=== PATIENT | female | born 1930 | race Caucasian/White ===

== ENCOUNTER 2017-03-26 19:54 | Emergency (ER) | payer OTHER ==
--- NOTE | ~2017-03-26 | CR142 ---
[facility] A Service of [facility] & [facility] RADIOLOGY TEXT RESULTS PATIENT: AMY CRUZ LOCATION: CFTX : 31 UNIT #: [id number] AGE: [address]: Lisandro Andersen SEX: F ORDER DR: [id number] [facility] [address] [place], [place] [address] [id number] E MR#: [id number] Acc #: [id number] NAME: AMY CRUZ. : 1930 SEX: F STUDY DATE/TIME: 03/26/2017 21:51 UNIT: [facility] ROOM: STUDY DESCRIPTION: CR Hand Min 3 Views Rt Attending Physician: Lisandro Andersen Ordering Physician: Lisandro Andersen Primary Care Physician: Didier Ash M.D. MEDICAL IMAGING REPORT This report is preliminary unless electronic signature is present EXAM Right hand, 3 views, 03/26/2017 INDICATIONS Right hand pain status post fall. 3-day duration. FINDINGS 3 views of the right hand without comparison. There is a possible fracture at the base of the fifth metacarpal. Please correlate with any point tenderness in this region. Otherwise, there is no acute traumatic findings. No foreign body. IMPRESSION 1. Possible fracture at the base of the fifth metacarpal. Please correlate with point tenderness in this region. 2. Degenerative changes in the right hand. Dictated by... Robles Alaniz M.D. THIS IS AN ELECTRONICALLY VERIFIED REPORT Robles Alaniz M.D. at 03/27/2017 2:26 AM RPRah/jasiel TD: 03/27/2017 02:13 JOB #: [id number] MEDICAL IMAGING REPORT Page 1 of 1 COPY
--- NOTE | ~2017-03-26 | CR133 ---
[facility] A Service of [facility] & [facility] RADIOLOGY TEXT RESULTS PATIENT: AMY CRUZ LOCATION: CFTX : 31 UNIT #: [id number] AGE: [address]: Lisandro Andersen SEX: F ORDER DR: [id number] [facility] [address] [place], [place] [address] [id number] E MR#: [id number] Acc #: [id number] NAME: AMY CRUZ. : 1930 SEX: F STUDY DATE/TIME: 03/26/2017 21:47 UNIT: [facility] ROOM: STUDY DESCRIPTION: CR Forearm 2 View Rt Attending Physician: (Jair) Lisandro Andersen Ordering Physician: Jair Andersen Primary Care Physician: Didier Ash M.D. MEDICAL IMAGING REPORT This report is preliminary unless electronic signature is present EXAM Right forearm. INDICATION Fall 3 days ago. Right forearm pain. FINDINGS 2 views of the right forearm without comparison. There is no acute fracture or dislocation. Alignment is anatomic. IMPRESSION No acute findings. Dictated by... Robles Alaniz M.D. THIS IS AN ELECTRONICALLY VERIFIED REPORT Robles Alaniz M.D. at 03/27/2017 2:26 AM FIDENCIO/howard TD: 03/27/2017 02:15 JOB #: [id number] MEDICAL IMAGING REPORT Page 1 of 1 COPY
--- NOTE | ~2017-03-26 | CR157 ---
[facility] A Service of [facility] & [facility] RADIOLOGY TEXT RESULTS PATIENT: AMY CRUZ LOCATION: CFTX : 31 UNIT #: [id number] AGE: [address]: Lisandro Andersen SEX: F ORDER DR: [id number] [facility] [address] [place], [place] [address] [id number] E MR#: [id number] Acc #: [id number] NAME: AMY CRUZ. : 1930 SEX: F STUDY DATE/TIME: 03/26/2017 21:40 UNIT: [facility] ROOM: STUDY DESCRIPTION: CR Humerus Min 2 View Rt Attending Physician: (Jair) Lisandro Andersen Ordering Physician: Jair Andersen Primary Care Physician: Didier Ash M.D. MEDICAL IMAGING REPORT This report is preliminary unless electronic signature is present EXAM Right humerus. INDICATIONS Right arm pain, status post fall 3 days ago. FINDINGS 2 views of the right humerus without comparison. There is a comminuted transverse fracture through the surgical neck of the humerus. There is a 3.5 cm fracture fragment off the lateral margin of the humerus. The fracture is not displaced. IMPRESSION Comminuted nondisplaced fracture of the proximal right humerus. Dictated by... Robles Alaniz M.D. THIS IS AN ELECTRONICALLY VERIFIED REPORT Robles Alaniz M.D. at 03/27/2017 2:26 AM FIDENCIO/howard TD: 03/27/2017 02:17 JOB #: [id number] MEDICAL IMAGING REPORT Page 1 of 1 COPY
--- NOTE | ~2017-03-26 | CR94 ---
[facility] A Service of [facility] & [facility] RADIOLOGY TEXT RESULTS PATIENT: AMY CRUZ LOCATION: CFTX : 31 UNIT #: [id number] AGE: [address]: Lisandro Andersen SEX: F ORDER DR: [id number] [facility] [address] [place], [place] [address] [id number] E MR#: [id number] Acc #: [id number] NAME: AMY CRUZ. : 1930 SEX: F STUDY DATE/TIME: 03/26/2017 21:43 UNIT: [facility] ROOM: STUDY DESCRIPTION: CR Elbow Min 3 Views Rt Attending Physician: Lisandro Andersen Ordering Physician: Lisandro Andersen Primary Care Physician: Didier Ash M.D. MEDICAL IMAGING REPORT This report is preliminary unless electronic signature is present EXAM Right elbow INDICATIONS Right elbow pain status post fall 3 days ago. FINDINGS 3 views of the right elbow without comparison. There is no acute fracture, dislocation, or effusion. No foreign body. IMPRESSION Negative right elbow. Dictated by... Robles Alaniz M.D. THIS IS AN ELECTRONICALLY VERIFIED REPORT Robles Alaniz M.D. at 03/27/2017 2:26 AM FIDENCIO/jasiel TD: 03/27/2017 02:16 JOB #: [id number] MEDICAL IMAGING REPORT Page 1 of 1 COPY
--- NOTE | ~2017-03-26 | CR230 ---
[facility] A Service of [facility] & [facility] RADIOLOGY TEXT RESULTS PATIENT: AMY CRUZ LOCATION: CFTX : 31 UNIT #: [id number] AGE: [address]: Lisandro Andersen SEX: F ORDER DR: [id number] [facility] [address] [place], [place] [address] [id number] E MR#: [id number] Acc #: [id number] NAME: AMY CRUZ. : 1930 SEX: F STUDY DATE/TIME: 03/26/2017 21:36 UNIT: [facility] ROOM: STUDY DESCRIPTION: CR Shoulder Min 2 View Rt Attending Physician: Lisandro Andersen Ordering Physician: Lisandro Andersen (Res) Primary Care Physician: Didier Ash M.D. MEDICAL IMAGING REPORT This report is preliminary unless electronic signature is present EXAM 3 views of the right shoulder INDICATIONS Right humerus pain status post fall 3 days ago. FINDINGS There is a comminuted transverse fracture through the proximal right humerus at the surgical neck. There is a 3.5 cm free fracture fragment along the lateral margin of the fracture. Humeral head articulates normally with the glenoid. There is mild displacement. IMPRESSION Comminuted fracture of the proximal humerus. Dictated by... Robles Alaniz M.D. THIS IS AN ELECTRONICALLY VERIFIED REPORT Robles Alaniz M.D. at 03/27/2017 2:26 AM C/jasiel TD: 03/27/2017 02:17 JOB #: [id number] MEDICAL IMAGING REPORT Page 1 of 1 COPY
--- NOTE | ~2017-03-26 | CR282 ---
[facility] A Service of [facility] & [facility] RADIOLOGY TEXT RESULTS PATIENT: AMY CRUZ LOCATION: CFTX : 31 UNIT #: [id number] AGE: [address]: Lisandro Andersen SEX: F ORDER DR: [id number] [facility] [address] [place], [place] [address] [id number] E MR#: [id number] Acc #: [id number] NAME: AMY CRUZ. : 1930 SEX: F STUDY DATE/TIME: 03/26/2017 21:49 UNIT: [facility] ROOM: STUDY DESCRIPTION: CR Wrist Min 3 View Rt Attending Physician: (Jair) Lisandro Andersen Ordering Physician: Jair Andersen Primary Care Physician: Didier Ash M.D. MEDICAL IMAGING REPORT This report is preliminary unless electronic signature is present EXAM Right wrist. INDICATIONS Right wrist pain status post fall. 3-day duration. FINDINGS 3 views of the right wrist without comparison. There is no acute fracture or dislocation. Alignment is anatomic. There is some degenerative changes in the mid carpal bones along the radial margin and at the first carpometacarpal articulation. IMPRESSION No acute traumatic findings. Dictated by... Robles Alaniz M.D. THIS IS AN ELECTRONICALLY VERIFIED REPORT Robles Alaniz M.D. at 03/27/2017 2:26 AM FIDENCIO/howard TD: 03/27/2017 02:09 JOB #: [id number] MEDICAL IMAGING REPORT Page 1 of 1 COPY
[~2017-03-26 19:54] MED LIST: ACETAMINOPHEN PO; ASPIRIN PO; CITALOPRAM HBR10 MG PO; LEVOTHYROXINE75 MCG PO; NAMENDA XR14 MG PO; NORVASC PO; PLAVIX PO; VALSARTAN-HCTZ1 EAC1 PO; VITAMIN B-1000 MCG/1 IM; VITAMIN D350000 UNIT PO; VITAMIN D50000 UNIT PO; ZOCOR PO
== END 2017-03-26 23:07 | disposition home or self-care (01) ==
LOC: CED 19:54 → CFTX 19:54 → CED 21:12 → CFTX 23:07
DX: S42.201A Unspecified fracture of upper end of right humerus, initial encounter for closed fracture (principal); S62.316A Displaced fracture of base of fifth metacarpal bone, right hand, initial encounter for closed fracture; I10 Essential (primary) hypertension; Z79.899 Other long term (current) drug therapy; W18.30XA Fall on same level, unspecified, initial encounter; Y92.009 Unspecified place in unspecified non-institutional (private) residence as the place of occurrence of the external cause
CPT/HCPCS: 29125; 73030; 73060; 73080; 73090; 73110; 73130; 99284